=== PATIENT | female | born 1960 | race Caucasian/White ===

== ENCOUNTER 2017-01-22 10:15 | Emergency (ER) | payer BC ==
[2017-01-22] MEDS ORDERED: Naproxen 500 MG TAB ONE (10:49)
[2017-01-22] MEDS ORDERED: Sulfameth/Trimethoprim DS 800-160mg TAB ONE (10:49)
[2017-01-22] MEDS ORDERED: Triple Antibiotic Oint 1 GM Packet ONE (10:49)
[2017-01-22] MEDS ORDERED: Cephalexin 500 MG CAP ONE (10:49)
[2017-01-22] MEDS ORDERED: Adacel (T-DAP) 0.5 ML VIAL ONE (10:49)
--- NOTE | 2017-01-22 12:05 | RAD ---
THREE VIEWS OF THE RIGHT FOOT INDICATIONS: Punctured right foot with foreign body. FINDINGS: No acute fracture or subluxation is evident. No radiopaque foreign body is noted. Lisfranc alignme nt is preserved. Accessory ossicle is seen adjacent to the cuboid. Enthesopathic change is seen of f the calcaneus. IMPRESSION: No acute osseous abnormality. POS: TRUNG
== END 2017-01-22 11:57 | disposition home or self-care (01) ==
LOC: MADERS 10:15
DX: S91.331A Puncture wound without foreign body, right foot, initial encounter (principal); L03.115 Cellulitis of right lower limb; E03.9 Hypothyroidism, unspecified; K50.90 Crohn's disease, unspecified, without complications; M19.90 Unspecified osteoarthritis, unspecified site; Z79.899 Other long term (current) drug therapy; X58.XXXA Exposure to other specified factors, initial encounter; Y93.11 Activity, swimming; Y92.828 Other wilderness area as the place of occurrence of the external cause
CPT/HCPCS: 90471; 90715